=== PATIENT | male | born 1970 ===

== ENCOUNTER 2021-05-01 11:53 | Emergency (ER) | payer SELFPAY ==
--- NOTE | 2021-05-01 12:14 | Consultation ---
History of Present Illness History of present illness: [facility] Consult Note # Demographics Consult Type: Acute Stroke Level 1 (0-4.5 hrs) Patient Location: Emergency Room First Name: Neville Last Name: Trevor Date of : 1970 Age: 50 Gender: Male Facility: [facility] Time of Initial Page ( Time): 05/01/2021, 11:57 Time of Return Call ( Time): 05/01/2021, 11:59 # HPI Chief Complaint: weakness (focal) History: 50M without known medical problemspresents from home with left-sided weakness, facial droop and right gaze. LKWT [id number] this morning. Last Known Normal: I have collected independent history specific to time last normal or last known well. We have collaborated with the provider and at this time, we have the most current timeline with the information that is available. Possible Thrombolytic candidate: not on warfarin or NOACs no intracranial hemorrhage history no recent major surgery no known active major internal bleeding no known blood disorders # Scores Time of exam and NIHSS (): 05/01/2021, 12:05 Level of Consciousness 1a: [1] = Not alert; but arousable by minor stim LOC Questions 1b: [2] = Answers neither correctly LOC Commands 1c: [1] = Performs one correctly Best Gaze 2: [2] = Forced deviation Visual 3: [2] = Complete hemianopia Facial Palsy 4: [2] = Partial paralysis Motor Arm Left 5a: [4] = No movement Motor Arm Right 5b: [2] = Some effort against gravity Motor Leg Left 6a: [4] = No movement Motor Leg Right 6b: [2] = Some effort against gravity Limb Ataxia 7: [0] = Absent Sensory 8: [2] = Severe to total sensory loss Best Language 9: [2] = Severe aphasia Dysarthria 10: [2] = Severe dysarthria Extinction and Inattention 11: [2] = Profound suzi-inattention or extinction to more than one modality NIHSS Total: 30 ICH Score: [1] = GCS 5-12 [0] = age < 80 [0] = ICH vol < 30 mL [0] = no intravent hemorrhage [0] = origin of hemorrhage NOT infratentorial ICH Score total: 1 # Data Time Head CT personally read by me ( Time): 05/01/2021, 12:[address]: hemorrhage preliminarily reviewed by me, please refer to radiology read for official reading R BG hemorrhage # Assessment Impression: Intracerebral hemorrhage # Plan Thrombolytic/Intervention: NOT IV Thrombolysis or IA Intervention candidate Thrombolytic Exclusion (< 3 hour window): ICH Intraarterial Exclusion: ICH Target Blood Pressure: SBP < 160 DBP < 105 Other: consult neurosurgery Additional Recommendations: HOB > 30 degrees transfer for neurosurgical evaluation If long wait/transfer time, would consider 0.5 g/kg mannitol with pleitez in place prior to leaving ED. Close monitoring of airway. Disposition: transfer # Logistics Telemedicine: Interactive 2 way audio and visual telecommunication technology was utilized during this visit Electronically signed at 05/01/2021 12:13 (Eastern Time) by True Davila MD
--- NOTE | 2021-05-01 12:24 | Cat Scan Report ---
CT HEAD WITHOUT CONTRAST INDICATION / CLINICAL INFORMATION: CODE STROKE ALTERED Stroke symptoms [id number]. TECHNIQUE: All CT scans at this location are performed using CT dose reduction for ALARA by means of automated exposure control. COMPARISON: None available. FINDINGS: BRAIN PARENCHYMA: Acute intraparenchymal hematoma centered within the right basal ganglia, measuring 4.4 x 2.8 cm transaxially and 3.9 cm in craniocaudal dimension.. There is mild surrounding edema. The re is mild effacement of the right lateral ventricle with right to left midline shift, measuring 3 mm . No additional intracranial hemorrhage. No evidence of recent infarct. VENTRICULAR SYSTEM/EXTRA-AXIAL SPACES: Effacement of the right lateral ventricle. No extra-axial flui d collection. ORBITS: Normal as visualized. SKELETAL SYSTEM/SOFT TISSUES: Normal bones and soft tissues. PARANASAL SINUSES/MASTOID AIR CELLS: No significant abnormality. ADDITIONAL FINDINGS: None. IMPRESSION: 1. Acute intraparenchymal hematoma of the right basal ganglia with 3 mm right to left midline shift. Findings were discussed with Dr. Holt by phone on 05/01/2021 at 11:19 AM Signer Name: Solo Wild MD Signed: 05/01/2021 12:19 PM Workstation Name: [id number]
--- NOTE | 2021-05-01 12:25 | Emergency Department Report ---
ED Neuro Deficit HPI - General Chief Complaint: Neuro Symptoms/Deficit Stated Complaint: POSS STROKE Time Seen by Provider: 05/01/21 11:59 Source: EMS Mode of arrival: Ambulatory Limitations: No Limitations - History of Present Illness Initial Comments: 50-year-old male presents to ED with possible stroke. states she was in the room with patient when he suddenly began to have facial droop and extremity weakness. She states this occurred at around 11:20 AM. Patient has history of alcohol abuse. states patient does not take any medications, he is not on any blood thinners, he does not have any diagnoses. Patient does not have a PCP. Patient has not received the COVID-19 vaccine. Family reports patient has not been exhibiting any Covid symptoms. -: minutes(s) (40) Location: left arm, left leg Presenting Symptoms: Present: Weak/Paralyzed One Side, Facial Droop/Numbness History of same: No Place: home Severity: severe Quality: weak Improves With: none Worsens With: none On Anticoagulants: No Context: sudden onset Treatments Prior to Arrival: none - Related Data Home Medications: Home Medications Medication Instructions Recorded Confirmed Last Taken No Known Home Medications [No 05/01/21 05/01/21 Unknown Reported Home Medications] Allergies/Adverse Reactions: Allergies Allergy/AdvReac Type Severity Reaction Status Date / Time No Known Allergies Allergy Verified 05/01/21 12:24 ED Review of Systems ROS: Stated complaint: POSS STROKE Other details as noted in HPI Comment: All other systems reviewed and negative Neurological: as per HPI. denies: headache ED Past Medical Hx - Medications Home Medications: Home Medications Medication Instructions Recorded Confirmed Last Taken Type No Known Home Medications [No 05/01/21 05/01/21 Unknown History Reported Home Medications] ED Neuro Physical Exam - General Limitations: No Limitations General appearance: lethargic Suspected Stroke: Yes - Head Head exam: Present: atraumatic, normocephalic - Eye Eye exam: Present: other (right gaze deviation) - ENT ENT exam: Present: mucous membranes moist - Neck Neck exam: Present: normal inspection - Respiratory Respiratory exam: Present: normal lung sounds bilaterally. Absent: respiratory distress - Cardiovascular Cardiovascular Exam: Present: regular rate, normal rhythm - GI/Abdominal GI/Abdominal exam: Present: soft. Absent: distended, tenderness - Extremities Exam Extremities exam: Present: normal inspection - NIHSS Assessment Interval: Baseline 1a. Level of Consciousness: arousable/minor stimuli 1b. LOC Questions: answers 1 question correctly 1c. LOC Commands: performs 1 task correctly 2. Best Gaze: forced deviation 3. Visual: complete hemianopia 4. Facial Palsy: partial paralysis 5b. Motor Arm Right: drift 5a. Motor Arm Left: no movement 6a. Motor Leg Left: drift 6b. Motor Leg Right: no movement 7. Limb Ataxia: absent 8. Sensory: severe/total sensory loss 9. Best Language: severe aphasia 10. Dysarthria: severe dysarthria 11. Extinction/Inattention: profound inattention Total Score: 27 Stroke Severity: Severe Stroke - Psychiatric Psychiatric exam: Present: flat affect - Skin Skin exam: Present: warm, dry, intact, normal color ED Course Vital Signs 05/01/21 05/01/21 05/01/21 12:01 12:24 12:28 Temperature 98.7 F Pulse Rate 89 94 H 92 H Respiratory 14 21 11 L Rate Blood Pressure 151/113 151/113 151/113 O2 Sat by Pulse 98 99 99 Oximetry 05/01/21 05/01/21 05/01/21 12:30 12:32 12:35 Temperature Pulse Rate 96 H 82 88 Respiratory 18 15 13 Rate Blood Pressure 170/112 176/116 O2 Sat by Pulse 98 99 99 Oximetry 05/01/21 05/01/21 05/01/21 12:41 12:43 12:45 Temperature Pulse Rate 88 85 84 Respiratory 12 15 13 Rate Blood Pressure 176/116 170/112 170/112 O2 Sat by Pulse 99 99 98 Oximetry 05/01/21 05/01/21 05/01/21 12:47 12:48 12:49 Temperature Pulse Rate 93 H 89 89 Respiratory 14 10 L 16 Rate Blood Pressure 170/112 156/105 156/105 O2 Sat by Pulse 99 97 99 Oximetry 05/01/21 05/01/21 05/01/21 12:50 12:51 12:52 Temperature Pulse Rate 93 H 87 84 Respiratory 13 14 13 Rate Blood Pressure 156/105 176/116 176/116 O2 Sat by Pulse 99 98 98 Oximetry 05/01/21 05/01/21 05/01/21 12:53 12:55 12:57 Temperature Pulse Rate 96 H Respiratory 10 L Rate Blood Pressure 156/105 156/105 156/105 O2 Sat by Pulse 99 98 100 Oximetry 05/01/21 05/01/21 05/01/21 12:59 13:01 13:02 Temperature Pulse Rate Respiratory Rate Blood Pressure 156/105 156/105 176/116 O2 Sat by Pulse 98 99 99 Oximetry - Consultations Consultation #1: 05/01/21 12:[address] Ambrocio with [facility]. He has accepted transfer to [facility]. I spoke with neuro editorial manager, Dr. Gilliland. Recommends systolic BP less than 140. No Keppra is advised at this time. - Lab Data Result diagrams: 05/01/21 12:17 05/01/21 12:17 Lab Results 05/01/21 05/01/21 05/01/21 Range/Units 12:17 12:17 12:17 WBC 4.6 (4.5-11.0) K/mm3 RBC 4.39 (3.65-5.03) M/mm3 Hgb 13.7 (11.8-15.2) gm/dl Hct 40.1 (35.5-45.6) % MCV 92 (84-94) fl MCH 31 (28-32) pg MCHC 34 (32-34) % RDW 13.5 (13.2-15.2) % Plt Count 78 L (140-440) K/mm3 PT 15.3 H (12.2-14.9) Sec. INR 1.16 H (0.87-1.13) APTT 36.0 (24.2-36.6) Sec. Thrombin Time < 13.0 L (15.1-19.6) Sec. Sodium 130 L (137-145) mmol/L Potassium 3.5 L (3.6-5.0) mmol/L Chloride 94.0 L (98-107) mmol/L Carbon Dioxide 24 (22-30) mmol/L Anion Gap 16 mmol/L BUN 3 L (9-20) mg/dL Creatinine 0.4 L (0.8-1.3) mg/dL Estimated GFR > 60 ml/min BUN/Creatinine Ratio 8 % Glucose 114 H (75-100) mg/dL POC Glucose (70-105) mg/dL Calcium 8.6 (8.4-10.2) mg/dL Total Bilirubin (0.1-1.2) mg/dL Direct Bilirubin (0-0.2) mg/dL Indirect Bilirubin mg/dL AST (5-40) units/L ALT (7-56) units/L Alkaline Phosphatase (35-129) units/L Total Creatine Kinase 43 L (55-170) units/L CK-MB (CK-2) < 1.0 (0.0-4.0) ng/mL CK-MB (CK-2) Rel Index 2.3 (0-4) Troponin T < 0.010 (0.00-0.029) ng/mL Total Protein (6.3-8.2) g/dL Albumin (3.9-5) g/dL Albumin/Globulin Ratio % 05/01/21 05/01/21 Range/Units 12:17 12:18 WBC (4.5-11.0) K/mm3 RBC (3.65-5.03) M/mm3 Hgb (11.8-15.2) gm/dl Hct (35.5-45.6) % MCV (84-94) fl MCH (28-32) pg MCHC (32-34) % RDW (13.2-15.2) % Plt Count (140-440) K/mm3 PT (12.2-14.9) Sec. INR (0.87-1.13) APTT (24.2-36.6) Sec. Thrombin Time (15.1-19.6) Sec. Sodium (137-145) mmol/L Potassium (3.6-5.0) mmol/L Chloride (98-107) mmol/L Carbon Dioxide (22-30) mmol/L Anion Gap mmol/L BUN (9-20) mg/dL Creatinine (0.8-1.3) mg/dL Estimated GFR ml/min BUN/Creatinine Ratio % Glucose (75-100) mg/dL POC Glucose 121 H (70-105) mg/dL Calcium (8.4-10.2) mg/dL Total Bilirubin 0.40 (0.1-1.2) mg/dL Direct Bilirubin < 0.2 (0-0.2) mg/dL Indirect Bilirubin 0.2 mg/dL AST 265 H (5-40) units/L ALT 50 (7-56) units/L Alkaline Phosphatase 161 H (35-129) units/L Total Creatine Kinase (55-170) units/L CK-MB (CK-2) (0.0-4.0) ng/mL CK-MB (CK-2) Rel Index (0-4) Troponin T (0.00-0.029) ng/mL Total Protein 7.7 (6.3-8.2) g/dL Albumin 3.4 L (3.9-5) g/dL Albumin/Globulin Ratio 0.8 % - EKG Data -: EKG Interpreted by Me EKG shows normal: sinus rhythm, axis, intervals, QRS complexes, ST-T waves Rate: normal Interpretation: no acute changes - Radiology Data Radiology results: report reviewed, image reviewed - Medical Decision Making 50-year-old male presents to ED with strokelike symptoms. CT head shows intraparenchymal hemorrhage, 4 cm in size in the right basal ganglia. There is also 3 mm shift present as well. I spoke with [facility] neurology group. Patient will be accepted to [facility], with neuro editorial manager Dr. Gilliland. Labetalol given for target systolic BP of less than 140. Flight crew has been called for transportation. - Differential Diagnosis CVA Critical Care Time: Yes Critical care time in (mins) excluding proc time.: 35 Critical care attestation.: If time is entered above; I have spent that time in minutes in the direct care of this critically ill patient, excluding procedure time. Critical Care Time: 35 min ED Disposition Clinical Impression: Hemorrhagic cerebrovascular accident (CVA) Disposition: 02 SHORT TERM HOSPITAL Is pt being admited?: No Condition: Stable Referrals: PRIMARY CARE, [Primary Care Provider] - 3-5 Days Time of Disposition: 12:45
[2021-05-01 12:38] VITALS: BP 176/116
[2021-05-01 12:38] LABS: INR 1.16 (0.87-1.13)
[2021-05-01 12:52] LABS: Blood Urea Nitrogen 3 mg/dL (9-20); Calcium 8.6 mg/dL (8.4-10.2); Hemolysis Index 3
[2021-05-01 12:53] LABS: Alanine Aminotransferase 50 units/L (7-56); Albumin 3.4 g/dL (3.9-5); BUN/Creatinine Ratio 8; Creatine Kinase MB < 1.0 ng/mL (0.0-4.0)
[2021-05-01 12:59] LABS: Bilirubin,Direct < 0.2 mg/dL (0-0.2)
[2021-05-01 13:02] LABS: Thrombin Time < 13.0 Sec. (15.1-19.6)
[2021-05-01 13:03] LABS: Hematocrit 40.1 % (35.5-45.6); Hemoglobin 13.7 gm/dl (11.8-15.2); Mean Corpuscular HGB Conc 34 % (32-34); Mean Corpuscular Volume 92 fl (84-94); Mean Platelet Volume 8.9 fl (6-12); Platelet Count 78 K/mm3 (140-440); Red Blood Count 4.39 M/mm3 (3.65-5.03); Red Cell Distribution Width 13.5 % (13.2-15.2)
--- NOTE | 2021-05-02 09:46 | Electrocardiograph Report ---
[facility] Test Date: 2021-05-01 Test Time: 12:12:07 Pat Name: BELEM GRANDE Department: Room: Gender: M [employer]: TV : 1970 Requested By: RILEY GRANADOS Order Number: [id number] Reading MD: Luis Aguero Measurements Intervals [place] Rate: 96 P: 93 AL: 150 QRS: 98 QRSD: 94 T: -7 QT: 337 QTc: 427 Interpretive Statements Sinus rhythm ST elev, probable normal early repol pattern No previous ECG available for comparison Electronically Signed On 05-02-2021 9:46:04 EDT by Luis Aguero
== END 2021-05-01 13:27 | disposition short-term general hospital (02) ==
LOC: ED 11:53
DX: I62.9 Nontraumatic intracranial hemorrhage, unspecified (principal); Z79.899 Other long term (current) drug therapy
CPT/HCPCS: 36415; 70450; 80048; 80076; 82550; 82553; 82962; 84484; 85025; 85610; 85670; 85730; 93005; 96374; 99285